=== PATIENT | male | born 1950 | race Caucasian/White ===

== ENCOUNTER 2022-07-18 12:31 | Emergency (ER) | payer OTHER, MEDICARE ==
[2022-07-18 13:31] LABS: ANION GAP 6.1 meq/L (7-15); CHLORIDE,CL 104 mmol/L (98-107); SODIUM,NA 139 mmol/L (136-145)
[2022-07-18 13:32] LABS: ESTIMATED GFR 48 mL/min (>=60)
[2022-07-18 13:41] LABS: PTT,PARTIAL THROMBOPLSTIN TIME 39.2 SEC (23.6-29.8)
[2022-07-18] MEDS ORDERED: Iopamidol 755 Mg/ML 100 ML Bottle IVPUSH ONE (13:43)
[2022-07-18 14:53] LABS: CORONAVIRUS COVID-19 NAA NEGATIVE (NEGATIVE); RESPIRATORY SYNCYTIAL VIR NAA NEGATIVE (NEGATIVE)
[2022-07-18] MEDS ORDERED: Levofloxacin/Dextrose 5%-Water 500 MG in Premix Bag 1 BAG IV ONE (14:56)
[2022-07-18 16:50] VITALS: BP 106/73; PULSE 73
== END 2022-07-18 16:30 ==
LOC: LL.ED 12:31
DX: J18.9 Pneumonia, unspecified organism (principal); I48.91 Unspecified atrial fibrillation; I11.0 Hypertensive heart disease with heart failure; I50.9 Heart failure, unspecified; K21.9 Gastro-esophageal reflux disease without esophagitis; E78.00 Pure hypercholesterolemia, unspecified; Z88.8 Allergy status to other drugs, medicaments and biological substances; Z88.0 Allergy status to penicillin; Z91.048 Other nonmedicinal substance allergy status; Z79.4 Long term (current) use of insulin; Z79.01 Long term (current) use of anticoagulants; Z20.822 Contact with and (suspected) exposure to COVID-19
CPT/HCPCS: 0241U; 36415; 51702; 70450; 71045; 71275; 80053; 81001; 82550; 82947; 83735; 83880; 84484; 85025; 85379; 85610; 85730; 93005; 93010; 96365; 99284; 99285-25; J1956; Q9967

== ENCOUNTER 2022-12-19 06:24 | Emergency (ER) | payer OTHER, MEDICARE ==
[2022-12-19] MEDS ORDERED: Sodium Chloride 0.9% 10 ML Syringe FLUSH PRN ×2 (06:25→07:34)
[2022-12-19] MEDS ORDERED: Bumetanide 2.5 MG/10 ML MDV ONE (06:48)
[2022-12-19] MEDS ORDERED: Bumetanide 2.5 MG/10 ML MDV IVPUSH ONE (06:51)
[2022-12-19 07:31] LABS: CHLORIDE,CL 101 mmol/L (98-107); SODIUM,NA 139 mmol/L (136-145)
[2022-12-19 07:32] LABS: ANION GAP 8.9 meq/L (7-15); ESTIMATED GFR 56 mL/min (>=60)
[2022-12-19] MEDS ORDERED: cefTRIAXone 2 GM in Sodium Chloride 0.9% 100 ML IV ONE (07:44)
[2022-12-19 07:45] LABS: CORONAVIRUS COVID-19 NAA NEGATIVE (NEGATIVE); RESPIRATORY SYNCYTIAL VIR NAA NEGATIVE (NEGATIVE)
[2022-12-19 08:22] LABS: BASE EXCESS ARTERIAL 2 mmol/L (-2-3); BICARBONATE,ARTERIAL 28.1 mmol/L (22-26); O2 DELIVERY DEVICE NON REBR MASK; O2 SATURATION ARTERIAL 94 % (95-98); PCO2 ARTERIAL 47 mmHG (35-45)
[2022-12-19 08:23] LABS: O2 FLOW RATE 15 L/min
[2022-12-19 08:25] LABS: PO2 ARTERIAL 74 mmHG (80-105)
[2022-12-19] MEDS ORDERED: VANCOmycin 2 GM/400 ML 2 GM in Premix Bag 1 BAG IV ONE (09:00)
== END 2022-12-19 11:10 ==
LOC: LL.ED 06:24
DX: A41.9 Sepsis, unspecified organism (principal); R65.20 Severe sepsis without septic shock; J96.01 Acute respiratory failure with hypoxia; I11.0 Hypertensive heart disease with heart failure; I50.41 Acute combined systolic (congestive) and diastolic (congestive) heart failure; I48.91 Unspecified atrial fibrillation; I25.10 Atherosclerotic heart disease of native coronary artery without angina pectoris; Z87.891 Personal history of nicotine dependence; E11.9 Type 2 diabetes mellitus without complications; E66.9 Obesity, unspecified; Z68.36 Body mass index [BMI] 36.0-36.9, adult; Z88.5 Allergy status to narcotic agent; Z88.8 Allergy status to other drugs, medicaments and biological substances; Z88.2 Allergy status to sulfonamides; Z91.018 Allergy to other foods; Z79.899 Other long term (current) drug therapy; Z79.01 Long term (current) use of anticoagulants; Z79.4 Long term (current) use of insulin; Z20.822 Contact with and (suspected) exposure to COVID-19
CPT/HCPCS: 0241U; 36415; 71045; 80053; 81001; 82803; 83605; 83735; 83880; 84484; 85025; 85379; 86140; 87040; 87086; 93005; 93010; 96365; 96366; 96367; 96375; 99285; 99285-25; J0696; J3370; J3490

== ENCOUNTER 2023-04-18 17:12 | Emergency (ER) | payer OTHER, MEDICARE ==
[2023-04-18] MEDS ORDERED: fentaNYL 50 MCG/ML SDV IVPUSH ONE ×2 (18:55→21:40)
[2023-04-18 19:03] LABS: APPEARANCE,URINE CLOUDY; BILIRUBIN,URINE SMALL (NEGATIVE); COLOR,URINE RED; GLUCOSE,URINE NEGATIVE (NEGATIVE); KETONES,URINE TRACE mg/dL (NEGATIVE); LEUKOCYTE ESTERASE,URINE SMALL (NEGATIVE); NITRITE,URINE NEGATIVE (NEGATIVE); OCCULT BLOOD,URINE LARGE (NEGATIVE); PH,URINE 5.5 (5.0-9.0); PROTEIN,URINE >=300 mg/dL (NEGATIVE); UROBILINOGEN,URINE 0.2 E.U./dL (0.2-1.0)
[2023-04-18 19:24] LABS: RBC,URINE PACKED /HPF; WBC,URINE 40-50 /HPF
[2023-04-18 19:25] LABS: BACTERIA,URINE RARE /HPF (NONE TO FEW); EPITHELIAL CELLS,URINE FEW /LPF; HYALINE CASTS,URINE RARE
[2023-04-18 19:35] LABS: CORONAVIRUS COVID-19 NAA NEGATIVE (NEGATIVE); INFLUENZA A NAA NEGATIVE (NEGATIVE); INFLUENZA B NAA NEGATIVE (NEGATIVE); RESPIRATORY SYNCYTIAL VIR NAA NEGATIVE (NEGATIVE)
[2023-04-18] MEDS ORDERED: Levofloxacin/Dextrose 5%-Water 750 MG in Premix Bag 1 BAG IV ONE (19:55)
== END 2023-04-18 21:55 ==
LOC: LL.ED 17:12
DX: T83.510A Infection and inflammatory reaction due to cystostomy catheter, initial encounter (principal); N39.0 Urinary tract infection, site not specified; I13.0 Hypertensive heart and chronic kidney disease with heart failure and stage 1 through stage 4 chronic kidney disease, or unspecified chronic kidney disease; E11.22 Type 2 diabetes mellitus with diabetic chronic kidney disease; N18.9 Chronic kidney disease, unspecified; I50.9 Heart failure, unspecified; R79.1 Abnormal coagulation profile; I48.91 Unspecified atrial fibrillation; I25.10 Atherosclerotic heart disease of native coronary artery without angina pectoris; E11.40 Type 2 diabetes mellitus with diabetic neuropathy, unspecified; E66.9 Obesity, unspecified; Z68.38 Body mass index [BMI] 38.0-38.9, adult; Z79.01 Long term (current) use of anticoagulants; Z79.4 Long term (current) use of insulin; Z79.899 Other long term (current) drug therapy; Z88.8 Allergy status to other drugs, medicaments and biological substances; Z91.018 Allergy to other foods; Z88.0 Allergy status to penicillin; Z20.822 Contact with and (suspected) exposure to COVID-19
CPT/HCPCS: 0241U; 36415; 51702; 71045; 81001; 83605; 87086; 87088; 87186; 96365; 96375; 96376; 99284; 99284-25; J1956; J3010